=== PATIENT | female | born 1965 | race Caucasian/White ===

== ENCOUNTER 2017-12-22 14:37 | Inpatient (IN) | payer OTHER ==
[~2017-12-22] VITALS: Ht 160 cm; Wt 88.0 kg
[2017-12-22] MEDS ORDERED: GABAPENTIN300 MG PO (15:47)
[2017-12-22] MEDS ORDERED: CYMBALTA60 MG PO (15:48)
[2017-12-22] MEDS ORDERED: LOVASTATIN20 MG PO (15:49)
[2017-12-22] MEDS ORDERED: LISINOPRIL20 MG PO (15:49)
[2017-12-22] MEDS ORDERED: CELEBREX50 MG PO (15:49)
[2017-12-22] MEDS ORDERED: GLUCOPHAGE500 MG PO (15:50)
[2017-12-22] MEDS ORDERED: ULTRAM50 MG PO (15:52)
--- NOTE | 2017-12-22 20:20 | NUR ---
INTAKE COMPLETED. ASSEMENT COMPLETED. PATIENT ARRIVED VIA STRETCHER @ 1938. PATIENT WAS ABLE TO AMBULATE FROM STRETCHER TO BED. PATIENT IS STEADY ON HER FEET. PATIENT OREINTED TO FLOOR AND ROOM. ALL QUESTIONS ANSWERED. NO NEEDS NOTED. SANDWICH BOX GIVEN TO PATIENT. CALL LIGHT IN REACH.
--- NOTE | 2017-12-22 21:05 | NUR ---
PATIENTS EVENING MEDICATIONS GIVEN PER ORDER. PATIENT GIVEN PRN PAIN MEDICATION PER ORDER FOR PAIN IN HER RIGHT SHOULDER. PATIENT DENIES ANY FURTHER NEEDS. CALL LIGHT IN REACH.
--- NOTE | 2017-12-22 23:35 | NUR ---
PATIENT ASSISTED TO THE RESTROOM. PATIENT IS A SBA. PATIENT IS STEADY ON HER FEET. PATIENT IS NOW BACK IN BED RESTING. PATIENT DENIES ANY NEEDS AT THIS TIME. ABX INFUSING. CALL LIGHT IN REACH.
--- NOTE | 2017-12-23 01:37 | NUR ---
DATA SUPPORT SPECIALIST IN ROOM. PATIENTS HAT EMPTIED. VITALS TAKEN BY DATA SUPPORT SPECIALIST. PATIENT DENIES ANY NEEDS AT THIS TIME. PATIENT IS BACK IN BED RESTING. NO NEEDS NOTED. CALL LIGHT IN REACH.
--- NOTE | 2017-12-23 03:04 | NUR ---
PATIENT IS RESTING IN BED WITH EYES CLOSED. PATIENTS BREATHING IS EVEN AND UNLABORED, RR 18. CALL LIGHT IN REACH.
--- NOTE | 2017-12-23 03:48 | NUR ---
PATIENT GIVEN PRN PAIN MEDICATION FOR 5/10 PAIN IN HER RIGHT SHOULDER. PATIENT DENIES ANY FURTHER NEEDS. CALL LIGHT IN REACH.
--- NOTE | 2017-12-23 05:05 | NUR ---
PATIENT RESTED WELL THOUGHOUT THE SHIFT. PATIENT IS ON AN ADA DIET AND IS TOLERATING IT WELL, NO COMPLAINTS OF NAUSEA. PATIENT IS INDEPENDENT IN THE ROOM AND IS STEADY ON HER FEET. PATIENT RECEIVED PRN PAIN MEDICATION X2 FOR PAIN IN HER RIGHT SHOULDER. PATIENTS RIGHT FOOT REDDENED ARE OUTLINED. PATIENT IS AAOX3 AND USES CALL LIGHT APPROPRIATELY.
--- NOTE | 2017-12-23 05:42 | NUR ---
PATIENT IS RESTING IN BED. PATIENT AWOKEN WHEN THE ROOM WAS ENTERED. MORNING ASSESMENT COMPLETED. PATIENT DENIES ANY NEEDS AT THIS TIME. CALL LIGHT IN REACH.
--- NOTE | 2017-12-23 10:30 | NUR ---
dr. white in room. debrided wound. new wrap on r foot. plan for surgery on thursday.
--- NOTE | 2017-12-23 10:35 | NUR ---
PATIENT SLEEPING AT THIS TIME.
--- NOTE | 2017-12-23 11:25 | NUR ---
PATIENT RESTING IN BED AND APPEARS TO BE SLEEPING. VITALS AND I&Os DONE. CALL LIGHT WITHIN REACH. NO OTHER NEEDS AT THIS TIME.
--- NOTE | 2017-12-23 11:52 | NUR ---
rounded with dr. luciano in room. updated on new orders/ plan from dr. barnard. plan to have surgery thursday and then discharge thursday. continue iv antibiotics.
[2017-12-23] MEDS ORDERED: CIPRO500 MG PO (13:55)
[2017-12-23] MEDS ORDERED: MELOXICAM15 MG PO (14:01)
[2017-12-23] MEDS ORDERED: BUPROPION HCL150 M2 PO (14:01)
[2017-12-23] MEDS ORDERED: DULOXETINE HCL30 MG PO (14:06)
[2017-12-23] MEDS ORDERED: DAILY MULTIPLE1 EACH PO (14:07)
[2017-12-23] MEDS ORDERED: FLUTICASONE PRO16 GM NAS (14:09)
--- NOTE | 2017-12-23 14:25 | NUR ---
PT SITTING ON SIDE OF BED, FINISHNG UP LUNCH. SHE MENTIONED THAT THE INFECTION WAS DECREASING, AND THAT SHE HAS NO PAIN. PT STATED THAT SHE HAD A TOE AMPUTATED LAST YEAR, AND SHE IS ALWAYS WORRIED ABOUT INFECTIONS. HAD GOOD VISIT, EXTENDED A BLESSING-WILL FOLLOW NEEDED
--- NOTE | 2017-12-23 14:30 | NUR ---
PATIENT GIVEN CROSS WORD PUZZLES AND GAMES TO ASSIT WITH PASSING TIME. PAIN OKAY AT THIS TIME. PLAN FOR MRI AT 1500. UPDATED PATIENT.
--- NOTE | 2017-12-23 15:06 | NUR ---
patient resting in bed. call light within reach. vitals and i&os done. fresh ice water. no other needs at this time.
[2017-12-23] MEDS ORDERED: MUPIROCIN22 GM TOP (15:37)
[2017-12-23] MEDS ORDERED: L-ARGININE500 MG PO (15:38)
[2017-12-23] MEDS ORDERED: FISH OIL 1,0001 EAC2 PO (15:38)
[2017-12-23] MEDS ORDERED: IRON325 M1 PO (15:39)
[2017-12-23] MEDS ORDERED: VITAMIN C1000 MG PO (15:39)
[2017-12-23] MEDS ORDERED: OMEPRAZOLE40 MG PO (15:41)
[2017-12-23] MEDS ORDERED: POTASSIUM CHLO10 ME1 PO (15:42)
[2017-12-23] MEDS ORDERED: IMITREX100 MG PO (15:43)
[2017-12-23] MEDS ORDERED: QVAR REDIHALE10.6 G1 INH (15:43)
[2017-12-23] MEDS ORDERED: VENTOLIN HFA18 GM INH (15:44)
[2017-12-23] MEDS ORDERED: TRIAMCINOLONE A15 G1 TOP (15:44)
--- NOTE | 2017-12-23 15:46 | NUR ---
patient to mri. made sl to go to mri
--- NOTE | 2017-12-23 15:47 | NUR ---
MED REC COMPLETE
--- NOTE | 2017-12-23 16:53 | NUR ---
PATIENT IS STILL IN MRI. AWAITING PATIENT TO GET BACK
--- NOTE | 2017-12-23 16:56 | NUR ---
PATIENT DOING WELL TODAY. DR. CASILLAS DEBRIDED WOUND ON R TARSAL. PLACED DRESING. PLAN FOR I AND D FOR THURSDAY. CONTINUE IV ANTIBIOTICS. PATIENT IS IND IN ROOM. SWELLING AND REDDNESS REMAINS PRESENT BUT NO INCREASE REDDNESS OUTSIDE MARKED LINE. ULTRAM FOR PAIN IN SHOULDER.
--- NOTE | 2017-12-23 19:43 | NUR ---
patient sitting on side of bed. fresh ice water. call light within reach. no other needs at this time.
--- NOTE | 2017-12-23 19:55 | NUR ---
RECEIVED REPORT FROM LION CH RN. PATIENT IS RESTING IN BED WATCHING TV. PATIENT DENIES ANY NEEDS AT THIS TIME. CALL LIGHT IN REACH.
--- NOTE | 2017-12-23 21:25 | NUR ---
PATIENT ASSESMENT COMPLETED. PATIENTS EVENING MEDCIATIONS GIVEN PER ORDER. PATIENT DID NOT REQUIRE ANY SS BLOOD SUGAR WAS WNL. PATIENT GIVEN WAR PACK FOR HER RIGHT SHOULDER. PATIENT RATES PAIN AT A 3/10 IN HER RIGHT SHOULDER. PATIENT DENIES THE NEED FOR PAIN MEDICATION AT THIS TIME. PATIENT REMAINS INDPENDENT IN THE ROOM AND IS STEADY ON HER FEET. NO NEEDS NOTED. CALL LIGHT IN REACH.
--- NOTE | 2017-12-23 22:30 | NUR ---
PATIENT IS NOW SL PER ORDER. PATIENT RATES PAIN AT A 6/10 IN HER RIGHT SHOULDER. PATIENT GIVEN PRN PAIN MEDICATION PER ORDER. PATIENT PROVIDED WITH A SNACK. NO FURTHER NEEDS NOTED. CALL LIGHT IN REACH.
--- NOTE | 2017-12-24 01:09 | NUR ---
PATIENTS 0100 MEDICAITONS GIVEN PER ORDER. PATIENT AWOKEN BRIEFLY. PATIENT RATES PAIN AT A 3/10 IN HER RIGHT SHOULDER. PATIENT GIVEN WARM PACK. PATIENT DENIES ANY FURTHER NEEDS. CALL LIGHT IN REACH.
--- NOTE | 2017-12-24 04:10 | NUR ---
PATIENT IS RESTING IN BED WITH EYES CLOSED. BREATHING IS EVEN AND UNLABORED, RR 18
--- NOTE | 2017-12-24 04:49 | NUR ---
PATIENT RESTED WELL THOUGHOUT THE SHIFT. PATIENT IS ON AN ADA DIET AND IS TOLERATING IT WELL, NO COMPLAINTS OF NAUSEA. PATIENT IS INDEPENDENT IN THE ROOM AND IS STEADY ON HER FEET. PATIENT RECEIVED PRN PAIN MEDICATION X1 FOR PAIN IN HER RIGHT SHOULDER. PATIENTS RIGHT FOOT REDDENED ARE OUTLINED. PATIENT IS AAOX3 AND USES CALL LIGHT APPROPRIATELY. HEAT PACKS ALSO PROVIDED FOR RIGHT SHOULDER. PATIENT IS SL.
--- NOTE | 2017-12-24 05:57 | NUR ---
PATIENT IS RESTING IN BED. PATIENT AWOKE WHEN ROOM WAS ENETERED. MORNING ASSEMENT COMPLETED. NO NEEDS NOTED AT THIS TIME. CALL LIGHT IN REACH.
--- NOTE | 2017-12-24 06:30 | NUR ---
VITALS AND I&OS DONE AND CHARTED. FRESH ICE WATER GIVEN. BEDSIDE TABLE AND CALL LIGHT WITHIN REACH.
--- NOTE | 2017-12-24 08:26 | NUR ---
PATIENT SITTING ON EDGE OF BED EATING BREAKFAST. NO SOB. R LOWER LEG IS WRAPED. PLAN FOR DR. CASILLAS TO SEE PATIENT LATER TODAY. BS 107. NO COVERAGE NEEDED. ULTRAM GIVEN. WARM PACK GIVEN. PATIENT STATING NO OTHER NEEDS AT THIS TIME.
--- NOTE | 2017-12-24 08:27 | NUR ---
CALLED LAB TO COME AND DRAW TIFFANI TROUGH
--- NOTE | 2017-12-24 09:02 | NUR ---
pt had finished her breakfast and asked if she could shower. I set up the shower for her and wrapped both her IV site and left foot. pt then showered on her own, and I changed her bed linens.
--- NOTE | 2017-12-24 09:43 | NUR ---
PATIENT SHOWERED. AMBULATING IN ROOM IND. TOLERATING WELL.
--- NOTE | 2017-12-24 10:22 | NUR ---
pt is sitting up on the side of the bed with call light in reach. pt did not need anything at the moment.
--- NOTE | 2017-12-24 12:09 | NUR ---
PATIENTS BLOOD SUGAR 87. PATIENT GIVEN SNACK AND INSTRUCTED TO CALL DOWN FOOD ORDER. PATIENT STATING SHE FELT GOOD. ANTIBIOTIC FINISHED. MADE SL. FLUSHED IV.
--- NOTE | 2017-12-24 13:50 | NUR ---
PATIENT GIVEN PO PAIN MEDICATION. PATIENT STAITNG 9/10 PAIN IN R SHOULDER. PATIENT GIVEN HEAT PACK WELL. PATIENT AMBULATING IN ROOM. TOLERATED 100 PERCENT OF LUNCH.
--- NOTE | 2017-12-24 14:14 | NUR ---
pt is resting in bed with call light in reach. pt did not need anything at the moment
--- NOTE | 2017-12-24 14:55 | NUR ---
STOPPED IN TO SEE IF THERE WAS ANYTHING I CAN HELP WITH REGARDING PATIENT'S DIABETES. SHE HAS BEEN LIVING WITH DIABETES FOR OVER 10 YEARS. SHE FOLLOWS A LOWER CARB HIGHER PROTEIN DIET AND IS DOING WELL WITH IT. SHE HAS BEEN EATING THIS WAY FOR A LITTLE OVER A YEAR. SHE HAS NO OTHER QUESTIONS OR CONCERNS AT THIS TIME. SHE LIKES OUR FOOD HERE AND DOING OK WITH THE MENU. WILL REMAIN AVAILABLE IF NEEDED.
--- NOTE | 2017-12-24 18:03 | NUR ---
PT DOING WELL. IND IN ROOM. ADA DIET. BS CHECKS HAVE BEEN WNL. NO COVERAGE NEEDED. PATIENT IS PLANNING ON SURGERY AT 0700. NPO AT MIDNIGHT. CONSENT ON CHART. VANCO TROUGH ORDERED FOR TOMORROW AT 0830. PLAN TO DISCHARGE HOME WITH HOME HEALTH ON THURSDAY.
--- NOTE | 2017-12-24 19:15 | NUR ---
RECEIVED REPORT FROM DAY SHIFT RN. PT IN BED. REPORTS SOME PAIN. PLAN FOR TRAMIDOL WITH NIGHT TIME MEDS. VANCO INFUSING AT THIS TIME. IV WNL. CALL LIGHT WITHIN REACH.
--- NOTE | 2017-12-24 22:04 | NUR ---
SANDWITCH BOX GIVEN PER PT REQUEST. D5LR HUNG AT 75ML/HR. ABX INFUSING. CALL LIGHT WITHIN REACH. REPORTS NO OTHER NEEDS AT THIS TIME.
--- NOTE | 2017-12-25 | NUR ---
PT PLACED ON NPO STATUS. CALL LIGHT WITHIN REACH
--- NOTE | 2017-12-25 01:00 | NUR ---
VANCO INFUSING. PT APPEARS TO BE SLEEPING. CALL LGT WITHIN REACH. RESPIRATIONS EQUAL AND NONLABORED.
--- NOTE | 2017-12-25 03:00 | NUR ---
PT APPEARS TO BE SLEEPING. RESPIRATIONS ARE EQUAL. 2/ NC IN PLACE. CALL LIGHT WITHIN REACH,.
--- NOTE | 2017-12-25 06:02 | NUR ---
BP OF 96/56 REPORTED FROM MEDIA SPECIALIST OCTOBER. MANUAL BP TAKEN BY THIS NURSE ANFTER STANDING PT UP, NO DIZZINESS, OR LIGHTHEADEDNESS. AMBULATED IN ROOM. BP 132/93. HR 93, RESPIRATIOSN 16. CALL LIGHT WITHIN REACH. PT BACK TO BED.
--- NOTE | 2017-12-25 06:10 | NUR ---
VITALS AND I&OS DONE AND CHARTED. HELPED HER DO HER WASH FOR SURGERY. PT NEEDS NOTHING ELSE AT THIS TIME.
--- NOTE | 2017-12-25 06:56 | NUR ---
PT OFF FLOOR TO SURGERY.
--- NOTE | 2017-12-25 07:28 | NUR ---
report given from shelly beverly. patient in surgery at this time.
--- NOTE | 2017-12-25 07:46 | NUR ---
PATIENT OUT TO SURGERY AT THIS TIME. NO OTHER NEEDS.
--- NOTE | 2017-12-25 08:34 | NUR ---
12/25/17 0834 [address] [place] [address] PT ARRIVED TO PACU DROWSY, TALKING AND DENIES PAIN AND NAUSEA. RESP EVEN AND UNLABORED.
--- NOTE | 2017-12-25 09:20 | NUR ---
PATIENT BACK FROM SURGERY. ASSISTED SELF TO BED FROM STRETCHER. PATIENT HAS DRESSING TO R FOOT. SURGICAL BOOT IN PLACE. ORDRED BREAKFAST. TAKING FLUDIS WELL. MORNING MEDICATION GIVEN. BESSY RN GAVE REPORT AT BEDSIDE. PATEINT FEELING WELL. TOES WARM PT ABLE TO MOVE TOES. UNABLE TO FEEL. HX OF NEUOPATHY AND NUMB. LUNGS CLEAR. ACTIVE BS.
--- NOTE | 2017-12-25 11:06 | NUR ---
patient tolerated breakfast. no nausea. pain okay at this time. assisted pateint to br with a stby assist and walker. wt of patient to r heel. patient tolerated using walker well.
--- NOTE | 2017-12-25 11:26 | NUR ---
patient assisted to the br. tolerating activity well. vitals taken. ordered lunch
--- NOTE | 2017-12-25 12:42 | NUR ---
PATIENT BACK TO BED, CALL LIGHT IN REACH. NO OTHER NEEDS AT THIS TIME.
--- NOTE | 2017-12-25 14:42 | NUR ---
PATIENT AMBULATED FROM BED TO BR. PATIENT IS STEADY ON FEET. HAS BEEN AMBULATING IND IN ROOM. TOLERATING FOOD WELL. PATIENT CONTINUES TO HAVE NO PAIN. NO NAUSEA. LUNGS REMAIN CLEAR.
--- NOTE | 2017-12-25 16:10 | NUR ---
patient tolerated surgery well. plan to discharge tomorrow afternoon on oral antibitoics. nathen is a stby assist in room. patient is heel touch wt baring on r foot. patient will have wc at home after discharge. currently getting iv vanco during the day. tolerating diet well. bs have been wnl needing no coverage today. dressing is in place. patient can move toes well, but no feeling in lower extremities, but they remain warm. no drainage at site. pt has had no pain in lower extremities. ultram for chronic shoulder pain.
--- NOTE | 2017-12-25 20:00 | NUR ---
REPORT RECIEVED. VANCO FINISHED, PT SALINE LOCKED. DRESSING INTACT. REPORTS NO PAIN IN RLE. PAIN OF 8/10 IN RIGHT SHOLDER. TRAMIDOL DUE AROUND 2300. HEAT PACK GIVEN. CALL LIGHT WITHIN REACH. REPORTS NO OTHER NEEDS AT THIS TIME.
--- NOTE | 2017-12-26 00:56 | NUR ---
VITALS AND I&OS DONE AND CHARTED. BEDSIDE TABLE AND CALL LIGHT WITHIN REACH.
--- NOTE | 2017-12-26 01:10 | NUR ---
TIFFANI ELLISON. PT REPORTS PAIN 5/10. TOLERABLE LEVEL. HEAT PACK AVAILIBLE. OOB TO BATHROOM WITH FWW. BACK TO BED. CALL LIGHT WITHIN REACH.
--- NOTE | 2017-12-26 02:57 | NUR ---
PT OOB TO BATHROOM. TOLERATED WELL. VOIDED 1000ML. BACK TO BED. CALL LIGHT WITHIN REACH.
--- NOTE | 2017-12-26 04:43 | NUR ---
Up to brp, voided and had a medium form bm. no c/o pain. R foot dressing intact. Currently sitting on edge of bed, no c/o pain, no requests
--- NOTE | 2017-12-26 06:14 | NUR ---
DC HOME TODAY. IV TIFFANI AND INVANZ THIS SHIFT. ULTRAM FOR RIGHT SHOLDER PAIN. HEAT PACK. ANTIBIOTIC BEADS IN KITS LIST TO TAKE HOME. DONT FORGET. SL. DRESSING ON RIGHT FOOT C/D/I.
--- NOTE | 2017-12-26 07:02 | OR ---
[facility] [address], [place] [address] Signed DATE OF OPERATION: 12/25/2017 SURGEON: Cat Álvarez DPM PREOPERATIVE DIAGNOSIS: Osteomyelitis, right 4th metatarsal. POSTOPERATIVE DIAGNOSIS: Osteomyelitis, right 4th metatarsal. PROCEDURE: Debridement of infected bone and soft tissue, right foot. NURSE DSP ENGINEER: Ryan Delarosa. ANESTHESIA: Local with MAC, local consisting of 17 mL of 0.5% ropivacaine plain and 2% lidocaine plain in a 1:1 mixture. ESTIMATED BLOOD LOSS: Less than 5 mL or minimal. HEMOSTASIS: With an ankle tourniquet. MATERIAL UTILIZED: Calcium sulfate beads mixed with vancomycin, 4-0 Vicryl, 4-0 nylon. PROCEDURE IN DETAIL: The patient was brought into the operating room and placed upon the operating table in the supine position. After IV sedation, the above local anesthesia was administered about the patient's right ankle. The patient's right foot was then scrubbed, prepped, and draped in the usual sterile technique. An Esmarch bandage was then utilized to exsanguinate the patient's right foot and then left wrapped around the ankle to act as tourniquet. Attention was then directed to the dorsal aspect of patient's right 4th metatarsal region, it should be noted that the 4th digit had been previously amputated and there was a small open lesion at this distal part where the metatarsal, had been removed. Incision was performed over the dorsal metatarsal approximately 4 cm in length. Careful dissection down to the level of the metatarsal was performed with Electronically Signed By: CAT ÁLVAREZ DPM 12/26/17 0702 PATIENT NAME: SIM DURAN OPERATIVE REPORT DATE OF : 63 REPORT #: [id number] PHYSICIAN: CAT ÁLVAREZ DPM PCP: LUIS A SERRANO MD REPORT IS CONFIDENTIAL AND NOT TO BE RELEASED WITHOUT AUTHORIZATION [facility] [address], [place] [address] Signed care being taken to identify and retract vital neurovascular structures. Bleeders were cauterized and ligated if necessary. Careful dissection down to the base of the 4th metatarsal was performed. A [place] elevator was used to remove deep soft tissue attachments to the metaphyseal region of the 4th metatarsal. A sagittal saw was utilized to perform a through and through osteotomy from dorsal to plantar in the metaphyseal region of the 4th metatarsal. An Allis clamp was then applied. Retraction was performed. The soft tissue attachments to the metatarsal were savored adjacent to the bone utilizing a #64 blade. The 4th metatarsal was then removed leaving the base intact. The area was flushed with copious amounts of sterile normal saline. Inspection of the wound site, there was some scar tissue formation and some michaela soft tissue present. This was removed or debrided utilizing curved tenotomy and forceps. It should also be noted that cultures were obtained after the osteotomy and cultures were taken on the base of the 4th metatarsal as well as the proximal osteotomy location of again 4th metatarsal. Upon completion of the debridement of the non-healthy soft tissue, calcium sulfate beads containing vancomycin were then scattered within the wound itself. No active sign of bacterial infection was observed. There was no purulent drainage that was expressed or noted throughout the debridement process and appeared that the wound itself was stable and that it would be safe to close. Therefore, 4-0 Vicryl was utilize to reapproximate the subcutaneous tissue and 4-0 nylon was used to close the dorsal tissue. Quarter inch packing gauze was utilized on the plantar wound along the plantar debridement area to act as a passive drain. The foot was then dressed with dry sterile dressing consisting of ABD pads, fluff gauze, and cast pad. Coban was then applied. Ankle tourniquet was removed and prompt hyperemic response was noted in all digits of the patients right foot. The patient was then escorted to the recovery area by Anesthesia. She had tolerated both the procedure and the anesthesia well. The patient is to be readmitted to the general medical floor for 24 hours of further observation as well as removal of a passive drain tomorrow morning. Cat Álvarez DPM TM/MODL /[id number] Copies: Electronically Signed By: CAT ÁLVAREZ DPM 12/26/17 0702 PATIENT NAME: SIM DURAN OPERATIVE REPORT DATE OF : 63 REPORT #: [id number] PHYSICIAN: CAT ÁLVAREZ DPM PCP: LUIS A SERRANO MD REPORT IS CONFIDENTIAL AND NOT TO BE RELEASED WITHOUT AUTHORIZATION [address] [address] Signed ~ Electronically Signed By: CAT ÁLVAREZ DPM 12/26/17 0702 PATIENT NAME: RENEESIM OPERATIVE REPORT DATE OF : 63 REPORT #: [id number] PHYSICIAN: CAT ÁLVAREZ DPM PCP: LUIS A SERRANO MD REPORT IS CONFIDENTIAL AND NOT TO BE RELEASED WITHOUT AUTHORIZATION
--- NOTE | 2017-12-26 07:38 | NUR ---
REPORT RECIEVED FROM KEYUR SANTOS. PT AWAKE AFTER DR CASILLAS IN TO CHANGE DRESSING. PT STATES HER DAUGHTER WILL BE HERE AROUND NOON TO PICK HER UP.
--- NOTE | 2017-12-26 08:40 | NUR ---
PT WALKING AROUND ROOM. FINISHED BREAKFAST. STATES IT WAS VERY GOOD. VS STABLE. UO WNL. PT DENIES PAIN IN FOOT, ASKED FOR TRAMADOL FOR CHRONIC R SHOULDER PAIN.
[2017-12-26] MEDS ORDERED: AUGMENTIN 875-1 EACH PO (09:48)
--- NOTE | 2017-12-26 10:00 | NUR ---
PT INDEPENDENT IN ROOM AND DENIES CONCERNS ATT.
--- NOTE | 2017-12-26 12:12 | NUR ---
PT LUNCH TRAY BROUGHT TO PT. BS ASSESSED, NO COVERAGE NEEDED. DISCHARGE EDUCATION DONE. PT VERBALIZED UNDERSTANDING. AB BEADS RETURNED TO PT AND INSTRUCTIONS FOR HOME HEALTH. IV REMOVED WNL. FAMILY IN ROOM AND PT GETTING DRESSED. WHEELED OUT TO DAUGHTERS CAR.
== END 2017-12-26 12:15 | disposition home or self-care (01) | DRG 623 ==
LOC: ED 14:37 → MS 19:00
PROVIDERS: Podiatrist Foot & Ankle Surgery; ADMIT Internal Medicine
PROC: 0JBQ0ZZ Excision of Right Foot Subcutaneous Tissue and Fascia, Open Approach (ICD-10-PCS; 2017-12-23)
PROC: 3E0U029 Introduction of Other Anti-infective into Joints, Open Approach (ICD-10-PCS; 2017-12-25)
PROC: 0QBN0ZZ Excision of Right Metatarsal, Open Approach (ICD-10-PCS; principal; 2017-12-25 06:45)
DX: E11.69 Type 2 diabetes mellitus with other specified complication (principal); M86.8X7 Other osteomyelitis, ankle and foot; L03.115 Cellulitis of right lower limb; E11.621 Type 2 diabetes mellitus with foot ulcer; L97.519 Non-pressure chronic ulcer of other part of right foot with unspecified severity; I10 Essential (primary) hypertension; E78.5 Hyperlipidemia, unspecified; E11.42 Type 2 diabetes mellitus with diabetic polyneuropathy; Z89.421 Acquired absence of other right toe(s); Z87.891 Personal history of nicotine dependence; Z88.2 Allergy status to sulfonamides; Z79.2 Long term (current) use of antibiotics; Z79.84 Long term (current) use of oral hypoglycemic drugs; Z79.1 Long term (current) use of non-steroidal anti-inflammatories (NSAID); Z79.891 Long term (current) use of opiate analgesic; Z79.51 Long term (current) use of inhaled steroids; Z79.899 Other long term (current) drug therapy
CPT/HCPCS: 00400; 36415; 73630; 73723; 80048; 80053; 80202; 83036; 85025; 87070; 87075; 87205; 96365; 99285; A9579; C1713; J1100; J1335; J1650; J1815; J2060; J2250; J2704; J2765; J2795; J3010; J3370; J7040; J7050; J7060; J7120